=== PATIENT | female | born 2000 | race Caucasian/White ===

== ENCOUNTER 2022-05-28 04:36 | Emergency (ER) | payer SELFPAY ==
[~2022-05-28] VITALS: Ht 165.1 cm; Wt 61.2 kg
--- NOTE | 2022-05-28 04:42 | NUR ---
PATIENT [id number] FROM HOME C/O RIGHT SIDE ABD PAIN X 1 HR. PATIENT IS A/O X 4, RR EVEN AND UNLABORED NO SOB NOTED. PATIENT TAKEN TO ER BED 04. PATIENT CONNECTED TO MONITORS. PATIENT IS AFEBRILE.
--- NOTE | 2022-05-28 04:50 | NUR ---
SEEN BY DR GALDAMEZ AT BEDSIDE
[2022-05-28] MEDS ORDERED: MORPHINE SULFATE INJ 2 MG/ML DISP.SYRIN IV ONE (05:00)
[2022-05-28] MEDS ORDERED: ONDANSETRON HCL/PF 4 MG/2 ML VIAL IVP ONE (05:00)
[2022-05-28] MEDS ORDERED: IV NS 0.9% 1,000 ML BAG IV ONE (05:00)
[2022-05-28] MEDS ORDERED: ONDANSETRON HCL/PF 4 MG/2 ML VIAL ONE ×2 (05:01→05:58)
[2022-05-28] MEDS ORDERED: MORPHINE SULFATE INJ 4 MG/ML DISP.SYRIN ONE (05:02)
--- NOTE | 2022-05-28 05:05 | NUR ---
PATIENT CLAIMED THAT HER MENSTRUAL PERIOD SHOULD BE ANYTIME THIS WEEK. LAST SEXUAL ACTIVTY WAS 1YR AND 6 MONTHS AGO. PATIENT IS ENCOURAGED TO SUBMIT URINE SAMPLE BUT CANNOT SINCE SHE IS IN TOO MUCH PAIN 04/18. PATIENT OPTED TO SIGN A DISCLAIMER THAT SHE IS NOT .
--- NOTE | 2022-05-28 05:12 | NUR ---
IV CANNULA G20 ON LEFT AC.
--- NOTE | 2022-05-28 05:30 | NUR ---
PT BROUGHT TO CT DEPT
--- NOTE | 2022-05-28 05:40 | NUR ---
SEE DONE AT BEDSIDE
[2022-05-28] MEDS ORDERED: ONDANSETRON HCL/PF - ER 4 MG/2 ML VIAL IV ONE (06:00)
--- NOTE | 2022-05-28 06:02 | NUR ---
COUNTY COURT JUDGE AT BEDSIDE
[2022-05-28 06:40] LABS: BASOPHILS % (AUTO) 0.7 % (0.0-2.0); EOSINOPHILS % (AUTO) 0.7 % (0.0-6.0); HEMATOCRIT 39 % (33-45); HEMOGLOBIN 13.3 g/dL (11.5-14.8); LYMPHOCYTES # (AUTO) 2.1 K/uL (0.8-4.8); LYMPHOCYTES % (AUTO) 42.9 % (20.0-44.0); MEAN CORPUSCULAR HGB CONC 34 g/dl (31.0-36.0); MEAN CORPUSCULAR VOLUME 91 fL (82-100); MONOCYTES # (AUTO) 0.4 K/uL (0.1-1.30); MONOCYTES % (AUTO) 8.5 % (2.0-12.0); NEUTROPHILS # (AUTO) 2.3 K/uL (1.8-8.9); NEUTROPHILS % (AUTO) 47.2 % (43.0-81.0); PLATELET COUNT (AUTO) 208 K/uL (150-450); RED BLOOD CELL COUNT(AUTO) 4.32 MIL/uL (4.0-5.2); WHITE BLOOD COUNT (AUTO) 4.8 K/uL (4.3-11.0)
[2022-05-28 06:47] LABS: ALBUMIN 3.3 g/dL (3.4-5.0); BILIRUBIN,DIRECT 0.1 mg/dL (0.0-0.2); BILIRUBIN,TOTAL 0.4 mg/dL (0.2-1.0); CALCIUM, SERUM 8.5 mg/dL (8.5-10.1); CREATININE 0.9 mg/dL (0.6-1.3); POTASSIUM 3.8 mmol/L (3.5-5.1); TOTAL PROTEIN, SERUM 6.7 g/dL (6.4-8.2)
--- NOTE | 2022-05-28 06:50 | NUR ---
URINE SPECIMEN SENT TO LAB
--- NOTE | 2022-05-28 07:11 | NUR ---
SEEN BY DR FORD AT BEDSIDE
[2022-05-28] MEDS ORDERED: HYDR-3980 PO (07:21)
[2022-05-28] MEDS ORDERED: IBUP-1957 PO (07:21)
--- NOTE | 2022-05-28 07:33 | NUR ---
IV removed. Catheter intact and site benign. Pressure and 4x4 applied to site. No bleeding noted.
--- NOTE | 2022-05-28 07:33 | NUR ---
Patient discharged to home in stable condition. Written and verbal after care instructions given. Patient verbalizes understanding of instruction.
[2022-05-28 07:34] VITALS: BP 131/70
[2022-05-28 07:47] LABS: BILIRUBIN,URINE NEGATIVE (NEGATIVE); COLOR,URINE YELLOW (YELLOW); LEUKOCYTE ESTERASE ,URINE NEGATIVE (NEGATIVE); NITRITE, URINE NEGATIVE (NEGATIVE); PROTEIN,URINE NEGATIVE (NEGATIVE); UGLUCOSE NEGATIVE (NEGATIVE); UROBILINOGEN,URINE 0.2 EU/dL (0.2)
[2022-05-28 08:00] LABS: BACTERIA,URINE Few /HPF (None Seen); SQUAMOUS EPITHELIAL CELL,UR Few /HPF (None Seen); WBC,URINE 0-2 /HPF (0-3)
== END 2022-05-28 07:34 | disposition home or self-care (01) ==
LOC: ER 04:39
DX: N20.0 Calculus of kidney (principal); R11.2 Nausea with vomiting, unspecified
CPT/HCPCS: 99284; 74176; 96374; 76705; 96361; 96375; 96376; 85025; 80048; 83690; 80076; 84703; 81001; 36415; J2270; J2405 ×2; J7030